=== PATIENT | female | born 1960 | race Caucasian/White ===

== ENCOUNTER 2016-10-10 22:21 | Inpatient (IN) | payer OTHER ==
[~2016-10-10] VITALS: Ht 149.9 cm; Wt 65.5 kg
[2016-10-10] MEDS ORDERED: SODIUM CHLORIDE FLUSH 10 ML SYR IV PRN (22:55)
[2016-10-10] MEDS ORDERED: ONDANSETRON 2 MG/ML (Z0FRAN) 2 ML VIAL IV ONE (22:55)
[2016-10-10] MEDS ORDERED: SODIUM CHLORIDE FLUSH 3 ML SYR IV PRN (22:55)
[2016-10-10 23:44] LABS: BASOPHILS % (AUTO) 0 % (0-2); EOSINOPHILS % (AUTO) 0 % (0-4); LYMPHOCYTES # (AUTO) 0.9 X10^3; MEAN CORPUSCULAR HEMOGLOBIN 30.2 PG (26.0-34.0); MEAN CORPUSCULAR VOLUME 85 FL (80-100); MEAN PLATELET VOLUME 10.3 FL (6.0-9.5); MONOCYTES # (AUTO) 1.1 X10^3; MONOCYTES % (AUTO) 8 % (3-11); NEUTROPHILS # (AUTO) 11.5 X10^3; NEUTROPHILS % (AUTO) 85 % (51-67); PLATELET COUNT 234 10^3uL (150-450); WHITE BLOOD COUNT 13.56 10^3uL (4.0-11.0)
[2016-10-10 23:46] LABS: MEAN CORPUSCULAR HGB CONC 35.6 g/dL (31.0-37.0)
[2016-10-10 23:48] LABS: CLARITY,URINE Clear; COLOR,URINE Yellow; GLUCOSE, URINE (UA) 2+ (Negative); LEUKOCYTE ESTERASE ,URINE Negative (Negative); UROBILINOGEN,URINE 0.2 mg/dL (0.2-1.0)
[2016-10-10 23:51] LABS: ANION GAP 21.9 MEQ/L (3-15)
[2016-10-10 23:51] LABS: BILIRUBIN,URINE 2+ (Negative)
[2016-10-10 23:52] LABS: ALBUMIN 3.6 g/dL (3.4-5.0); CALCULATED IONIZED CALCIUM 4.4 mg/dL (3.8-4.6); TOTAL PROTEIN 6.6 g/dL (6.4-8.5)
[2016-10-11] VITALS (15 sets, daily range): BP systolic 94–134; BP diastolic 30–81
[2016-10-11 00:22] LABS: URINE CENTRIFUGED VOLUME 10 mL
[2016-10-11 00:24] LABS: YEAST,URINE 1+
[2016-10-11] MEDS ORDERED: LIDOCAINE PF 1% (XYLOCAINE) 2 ML VIAL INJ ONE (00:30)
[2016-10-11 00:49] LABS: ABG PCO2 24 mmHg (35-45); ABG PH 7.46 (7.35-7.45)
[2016-10-11 00:50] LABS: ABG OXYGEN SATURATION 98 % (95-98); ABG PO2 93 mmHg (80-105)
[2016-10-11] MEDS ORDERED: D5 1/2 NS W/KCL 20 MEQ/L 1,000 ML IV SCH ×2 (01:41→11:11)
[2016-10-11] MEDS ORDERED: IBUPROFEN 600 MG (MOTRIN) TAB PO PRN (01:45)
[2016-10-11] MEDS ORDERED: GLUCAGON EMERGENCY 1 MG/KIT IM PRN ×2 (01:45→16:26)
[2016-10-11] MEDS ORDERED: ACETAMINOPHEN 325 MG TAB (TYLENOL) PO PRN (01:45)
[2016-10-11] MEDS ORDERED: DEXTROSE 50% 25 GM/50 ML SYRINGE IV PRN ×2 (01:45→16:25)
[2016-10-11] MEDS ORDERED: CALCIUM CARBONATE CHEWABLE 300 MG (TUMS) TABLET PO PRN ×2 (01:45→16:25)
[2016-10-11] MEDS ORDERED: MAG HYDROX/AL HYDROX/SIMETH 200-200-20/5 ML (MAG-AL PLUS) 30 ML UDC PO PRN ×2 (01:45→16:28)
[2016-10-11] MEDS ORDERED: ONDANSETRON 2 MG/ML (Z0FRAN) 2 ML VIAL IV PRN (01:45)
[2016-10-11] MEDS ORDERED: INSULIN REGULAR VIAL 100 UNIT in SODIUM CHLORIDE 100 ML IV SCH (01:45)
[2016-10-11] MEDS ORDERED: PROMETHAZINE HCL INJ 12.5 MG in SODIUM CHLORIDE 25 ML IV PRN ×2 (01:45→16:24)
[2016-10-11] MEDS ORDERED: INSULIN REGULAR 1 UNIT/0.01 ML DOSE SC ONE (01:45)
[2016-10-11] MEDS ORDERED: DEXTROSE ORAL GEL (GLUTOSE 40%) 15 GM TUBE PO PRN ×2 (01:45→16:15)
[2016-10-11] MEDS ORDERED: SODIUM CHLORIDE 100 ML ONE ×2 (02:28→07:32)
--- NOTE | 2016-10-11 03:30 | NUR ---
Pt admitted to room 345 from ER via cart at 0240. Pt admitted for DKA and N/V. Pt transferred self from cart to bed. Pt very weak, needed assist of one to get completely on bed. Pt reports feeling nauseous. Zofran 4 mg IV administered at 0242. 7 units Insulin administered in right upper arm for elevated BGM at 0243. Telemetry applied at 0246, NSR, rate 90's. IVF of NS initiated at 500cc/hr at 0254. Insulin gtt started at 9.5 units/hr based on weight of 68.1 kg X 0.14 units/hour for first hour. Initial BGM was 407. O2 placed @ 2L per NC at 0325 due to O2 sats dropping to 86%. Pt stated she was hot, provided fan in room for comfort. Pt reports nausea has lessened and feels tired. No other needs at this time. Call light in reach. Side rails up times two.
--- NOTE | 2016-10-11 04:00 | NUR ---
BGM 393, administered bolus of 9.5 units per protocol and continued insulin drip at same rate.
--- NOTE | 2016-10-11 04:10 | NUR ---
Attempted to contact pt's spouse per request. Spouse's phone was busy, tried 3 times. Also attempted to call 2nd contact, Rufino Ortiz, voice mail picked up, no message left. Informed pt of results of phone calls. Will attempt calling again at a later time. Pt resting well. No c/o nausea at this time.
[2016-10-11 04:56] LABS: ALBUMIN 3.1 g/dL (3.4-5.0); PHOSPHORUS 2.6 mg/dL (2.4-4.9)
--- NOTE | 2016-10-11 05:00 | NUR ---
BGM 248, insulin drip decreased by 50% to 4.7 units/hr. IVF changed to D5 1/2NS with 20KCL tra 200cc/hr.
[2016-10-11] MEDS ORDERED: D5 1/2 NS W/KCL 20 MEQ/L 1,000 ML IV ONE (05:08)
--- NOTE | 2016-10-11 05:25 | NUR ---
Potassium level 3.1. Per order, Insulin drip stopped. Administering Potassium bolus X2, then will restart insulin drip. Pt continues to rest without complaints. No other needs at this time.
[2016-10-11] MEDS: POTASSIUM CL IVPB 50 ML IV PRN ×3 (05:28→09:41)
[2016-10-11] MEDS ORDERED: POTASSIUM CHLORIDE ER 10 MEQ CAPSULE PO ONE ×2 (06:16→06:20)
--- NOTE | 2016-10-11 06:30 | NUR ---
Pt c/o IV site hurting with potassium infusing. Tried to alleviate some of the discomfort by reducing the rate of infusion, pt could not tolerate it. Stopped infusion. Notified Dr. Perry, received new order for PO KCL. Restarted IVF and insulin drip. Pt stated the IV site in left forearm hurt too bad to continue infusions. No redness or edema present, site still flushes well. Will give site a break. Restarted IV to RAC, 20G. IVF and Insulin drip now infusing in different site. Gave Potassium 10 meq and Protonix scheduled dose. Pt took without difficulty. Pt resting in bed now. Denies needs. No c/o nausea. Will continue to monitor.
[2016-10-11] MEDS ORDERED: PANTOPRAZOLE 40 MG (PROTONIX) TAB PO SCH (07:00)
--- NOTE | 2016-10-11 07:15 | NUR ---
Insulin drip rate increased by 50% to 10.7 units/hr per protocol for a blood sugar of 258, which is an increase from 234. Radiology here to take pt. to xray by WC.
--- NOTE | 2016-10-11 07:26 | NUR ---
Pt. back to room from xray. Assisted up to toilet. Gait is weak and unsteady.
--- NOTE | 2016-10-11 07:50 | NUR ---
Pt. continues to c/o nausea and some dizziness. Phenergan 12.5mg IV given at this time. UA obtained and sent to lab.
--- NOTE | 2016-10-11 08:10 | NUR ---
Sejalfran ordered 10/10 at 2255 in ED was not given per report.
[2016-10-11 08:31] LABS: ALBUMIN 3.5 g/dL (3.4-5.0); ANION GAP 16.3 MEQ/L (3-15); MAGNESIUM* 1.7 mg/dL (1.6-2.3); PHOSPHORUS 2.4 mg/dL (2.4-4.9)
[2016-10-11] MEDS ORDERED: ENOXAPARIN 40 MG/0.4 ML (LOVENOX) SYR SC SCH (09:00)
--- NOTE | 2016-10-11 09:10 | NUR ---
Insulin drip stopped for KCL infusion per protocol for K level of 3.1 with 0800 labs.
[2016-10-11] MEDS: LIDOCAINE PF 1% (XYLOCAINE) 2 ML VIAL INJ PRN ×2 (09:12→09:41)
--- NOTE | 2016-10-11 10:22 | NUR ---
KCL infusion complete. Insulin drip restarted at 2 units/hr.
--- NOTE | 2016-10-11 10:40 | NUR ---
NUTRITION ASSESSMENT Level 1 Patient: Lyn Menchaca Age/Sex: 55/F Date Screened: 10-11-16 Weight: 144.1#/65.5 kg Height: 59 inches Primary Diagnosis: DKA Diet Order: medium diabetic Relevant labs: glucose 203 (602 on admission), Hgb A1c >14.0 Food allergies: N Nutrition Assessment Criteria Age over 80: N Body Mass Index (BMI) under 19: N Admission Screening Indicates Risk? 3 points Moderate/High Risk Diagnosis: 6 points TPN or PPN: N NPO or clear liquid diet: N Serum Glucose <70 or >180: 3 points Hgb A1c >6.7: 3 points Total: 15 points Risk Screen: __ Patient at low nutritional risk based on available data; reevaluate in 5-7 days __ Patient at moderate nutritional risk based on available data; reevaluate in 3-5 days _X_ Patient at high nutritional risk; complete Nutrition Assessment within 48 hours of admission.
[2016-10-11] MEDS ORDERED: INSULIN LISPRO 1 UNIT/0.01 ML (HUMALOG) DOSE SC SCH ×2 (11:30→18:00)
[2016-10-11] MEDS: MAGNESIUM 1 GM/100 ML IVPB 100 ML IV SCH ×2 (11:34→12:40)
--- NOTE | 2016-10-11 11:45 | NUR ---
Dr. Perry notified of pts. temp of 100.7. Tylenol given for temp. Pt. has been intermittently feeling hot and cold this morning. Holding sliding scale Humalog at this time per Dr. Perry's verbal request/order, since insulin drip was just DC'd.
--- NOTE | 2016-10-11 11:50 | NUR ---
MED REC COMPLETED-current med list obtained from patient interview. Conducted by Po Ortiz, PharmD Candidate 2017.
[2016-10-11 12:24] LABS: ANION GAP 11.4 MEQ/L (3-15); PHOSPHORUS 2.6 mg/dL (2.4-4.9)
--- NOTE | 2016-10-11 13:07 | NUR ---
Pt. resting with eyes closed. SpO2 86-88% on RA. O2 placed at 1L/NC to keep SpO2 at 90% or greater as ordered. RT notified. SpO2 92-93% on 1L/NC.
--- NOTE | 2016-10-11 13:55 | NUR ---
NUTRITION ASSESSMENT Level II Patient: Lyn Menchaca Age/Sex: 55/F Date Assessed: 10-11-16 ASSESSMENT Pertinent History: Patient admitted with DKA and screened at high nutritional risk secondary to diagnosis and reports of not taking diabetes medication at home. Of note, her A1c was significantly elevated (13.5) at her last admission almost 2 years ago in November,. PMHx includes GERD, diabetes, HTN and kidney stones. She lives at home with her and 2 young grandsons. She c/o abdominal pain and n/v/d. Patient has intentionally lost >100# over the last 2 years by verbal report; according to her old chart, she weighed 188# in November,. Meds/Nutrition: Protonix, NS, KCl, Regular insulin, D5 NS w/ KCl Weight: 144.1#/65.5 kg Height: 59 inches Body Mass Index (BMI): 29.2 [place] Body Weight : 95#/43.1 kg % IBW: 151% GASTROINTESTINAL Appetite: poor Diet Order: medium diabetic Unintentional loss of >10 lbs. in 3 months: N Difficult to chew/swallow: N Diabetes: Yes Relevant Labs: glucose 203 (602 on admission), Hgb A1c >14.0 Calculations for Nutritional Assessment Estimated calorie needs: 22-25 kcals/kg = 1,430-1,625 kcals Estimated protein needs: 1.0-1.1 g/kg = 65-71 g./day DIAGNOSIS 1. Nutrition Diagnosis: Altered nutrition related lab values related to endocrine dysfunction and behavior choices as evidenced by DKA diagnosis with reports of not taking diabetes medications. NUTRITIONAL INTERVENTION Goal: Patient will receive adequate nutrition to meet her needs and support normal glycemic control. Plan: Agree with medium diabetic diet. Recommend outpatient diabetes self-management education since pt. has a prolonged history of uncontrolled diabetes. MONITORING & EVALUATION _X_ Monitor patients menu selections _X_ Monitor patients food intake per nursing notes __ Monitor NPO/clear liquid days _X_ Monitor lab values __ Monitor I&O __ Other
--- NOTE | 2016-10-11 14:41 | NUR ---
Pt. ate all of her lunch, has IVF with 5% dextrose infusing at 200ml/hr and insulin drip was DC'd at 1119. Blood sugar checked to monitor fluctuation, as next scheduled check is not until 1730. Blood sugar is 363 at this time. Result texted to Dr. Perry. Addendum: 10/11/16 at 1448 by Diana Lombardi RN Amended: Links added.
--- NOTE | 2016-10-11 15:03 | NUR ---
Phone order received from Dr. Perry to DC current IVF and start NS @ 200ml/hr x 1 liter.
[2016-10-11] MEDS ORDERED: SODIUM CHLORIDE FLUSH 10 ML SYR IV PRN ×2 (16:29→22:55)
[2016-10-11] MEDS ORDERED: SODIUM CHLORIDE FLUSH 3 ML SYR IV PRN ×2 (16:29→22:55)
[2016-10-11] MEDS ORDERED: LIDOCAINE PF 1% (XYLOCAINE) 2 ML VIAL INJ PRN (16:29)
[2016-10-11 16:59] LABS: ALBUMIN 2.9 g/dL (3.4-5.0)
--- NOTE | 2016-10-11 17:27 | NUR ---
Pt. transferred to [facility] via WC accompanied by RN. Report given to Amy Marks RN and care of pt. assumed. Belongings sent with pt.
--- NOTE | 2016-10-11 17:27 | NUR ---
Pt transferred from ICU to room 319 at this time via w/c accompanied by this nurse and rah CRESPO. Pt on RA. 1 Assist to bathroom, then bed. Missed hat- large amt urine. IVF infusing at 200ml/hr- SL x2.
[2016-10-11] MEDS: INSULIN LISPRO 1 UNIT/0.01 ML (HUMALOG) DOSE SC SCH ×4 (17:49→21:15)
--- NOTE | 2016-10-11 17:52 | NUR ---
Pt refusing supper tray at this time- Clarified with Dr. Perry regarding Humalog orders- Scheduled for Humalog 10units with meals and 3units sliding scale-Dr. Perry gave VORB to given sliding scale and hold Prandial with understanding that if patient eats to give prandial then.
[2016-10-11] MEDS: ACETAMINOPHEN 325 MG TAB (TYLENOL) PO PRN (20:08)
--- NOTE | 2016-10-11 20:08 | NUR ---
PRN Tylenol given at this time for discomfort. Pt appears diaphoretic, states she is hot. Fan turned on, heater turned off. Cool wash cloth provided. Pt denies other needs.
[2016-10-11] MEDS ORDERED: INSULIN GLARGINE 1 UNIT/0.01ML (LANTUS) DOSE SC SCH (21:00)
[2016-10-11] MEDS: INSULIN GLARGINE 1 UNIT/0.01ML (LANTUS) DOSE SC SCH (21:15)
[2016-10-12 00:35] VITALS: BP 120/74
[2016-10-12] MEDS: IBUPROFEN 600 MG (MOTRIN) TAB PO PRN (04:45)
[2016-10-12] MEDS: ONDANSETRON 2 MG/ML (Z0FRAN) 2 ML VIAL IV PRN ×2 (04:45→12:13)
--- NOTE | 2016-10-12 04:57 | NUR ---
Pt was found to be incontinent of loose stool. Cleaned pt up in shower. Pt vomited x1 upon returning to room. Endorses feeling achy and nauseated. PRN Motrin and Zofran given at this time. Pt's RAC IV just wrapped in Coban, no tegaderm d/t allergy. Will monitor closely and attempt to reinforce it better. Pt denies other needs.
[2016-10-12 05:57] VITALS: BP 134/66
[2016-10-12] MEDS: PANTOPRAZOLE 40 MG (PROTONIX) TAB PO SCH (06:27)
[2016-10-12 06:36] LABS: BASOPHILS % (AUTO) 0 % (0-2); EOSINOPHILS % (AUTO) 0 % (0-4); LYMPHOCYTES # (AUTO) 1.4 X10^3; MEAN CORPUSCULAR HEMOGLOBIN 29.8 PG (26.0-34.0); MEAN CORPUSCULAR HGB CONC 34.3 g/dL (31.0-37.0); MEAN CORPUSCULAR VOLUME 87 FL (80-100); MEAN PLATELET VOLUME 10.3 FL (6.0-9.5); MONOCYTES # (AUTO) 0.9 X10^3; MONOCYTES % (AUTO) 11 % (3-11); NEUTROPHILS # (AUTO) 5.5 X10^3; NEUTROPHILS % (AUTO) 70 % (51-67); PLATELET COUNT 171 10^3uL (150-450); WHITE BLOOD COUNT 7.78 10^3uL (4.0-11.0)
--- NOTE | 2016-10-12 06:45 | NUR ---
Pt endorses feeling better. States she is comfortable. SL intact. Denies needs.
[2016-10-12 07:05] LABS: ALBUMIN 2.5 g/dL (3.4-5.0); ANION GAP 11.3 MEQ/L (3-15); PHOSPHORUS 2.3 mg/dL (2.4-4.9)
[2016-10-12 08:00] VITALS: BP 133/73
[2016-10-12] MEDS: INSULIN LISPRO 1 UNIT/0.01 ML (HUMALOG) DOSE SC SCH ×7 (08:17→20:39)
[2016-10-12] MEDS: ENOXAPARIN 40 MG/0.4 ML (LOVENOX) SYR SC SCH (08:18)
--- NOTE | 2016-10-12 08:20 | NUR ---
PT FINISHED BREAKFAST TRAY, ATE 100%, C/O NAUSEA BUT DECLINES IV PHENERGAN, STS SHE WANTS TO WAIT FOR IT TO PASS.
--- NOTE | 2016-10-12 09:20 | NUR ---
PT C/O CONT/WORSENING NAUSEA, HAS EMESIS BAG CLOSE, IV PHENERGAN INFUSION INIT AT 75CC/HR PER PATENT IVL IN RAC, WILL MONITOR.
[2016-10-12 12:00] VITALS: BP 113/63
[2016-10-12] MEDS ORDERED: INSULIN LISPRO 1 UNIT/0.01 ML (HUMALOG) DOSE SC ONE (13:00)
[2016-10-12 15:57] VITALS: BP 123/64
[2016-10-12] MEDS: ACETAMINOPHEN 325 MG TAB (TYLENOL) PO PRN (16:39)
[2016-10-12 20:11] VITALS: BP 118/67
[2016-10-12] MEDS: INSULIN GLARGINE 1 UNIT/0.01ML (LANTUS) DOSE SC SCH (21:06)
[2016-10-13 00:04] VITALS: BP 125/65
[2016-10-13 04:21] VITALS: BP 138/70
[2016-10-13 06:08] LABS: MEAN CORPUSCULAR HEMOGLOBIN 29.8 PG (26.0-34.0); MEAN CORPUSCULAR HGB CONC 34.7 g/dL (31.0-37.0); MEAN CORPUSCULAR VOLUME 86 FL (80-100); MEAN PLATELET VOLUME 10.2 FL (6.0-9.5); PLATELET COUNT 162 10^3uL (150-450)
[2016-10-13 06:27] LABS: ALBUMIN 2.5 g/dL (3.4-5.0); ANION GAP 9.7 MEQ/L (3-15); MAGNESIUM* 1.6 mg/dL (1.6-2.3); PHOSPHORUS 2.7 mg/dL (2.4-4.9)
[2016-10-13 06:40] LABS: BAND NEUTROPHILS % 0 % (0-6); EOSINOPHILS % 1 % (0-4); LYMPHOCYTES # 1.8 #; MONOCYTES # 0.7 #; MONOCYTES % 13 % (3-11); RBC MORPH NORMAL (NORMAL); SEGMENTED NEUTROPHILS % 49 % (51-67); TOTAL CELLS COUNTED 100
[2016-10-13] MEDS: INSULIN LISPRO 1 UNIT/0.01 ML (HUMALOG) DOSE SC SCH ×7 (06:51→21:00)
[2016-10-13] MEDS: PANTOPRAZOLE 40 MG (PROTONIX) TAB PO SCH (06:54)
[2016-10-13] MEDS: ENOXAPARIN 40 MG/0.4 ML (LOVENOX) SYR SC SCH (08:21)
[2016-10-13 08:29] VITALS: BP 170/90
--- NOTE | 2016-10-13 08:30 | NUR ---
Pt sitting in chair eating breakfast. Breathing equal and unlabored on room air. Pt alert, oriented, and cooperative. SL without redness or edema. Pt c/o diarrhea thru the night.
[2016-10-13 12:50] VITALS: BP 146/93
[2016-10-13] MEDS: ACETAMINOPHEN 325 MG TAB (TYLENOL) PO PRN (16:21)
[2016-10-13 17:11] VITALS: BP 153/71
[2016-10-13] MEDS ORDERED: lisINopril 10 MG (PRINIVIL) TABLET PO ONE (17:15)
[2016-10-13] MEDS ORDERED: lisINopril 10 MG (PRINIVIL) TABLET ONE (18:43)
--- NOTE | 2016-10-13 19:30 | NUR ---
Pt is sitting up in recliner, alert and oriented x 4, resp are even and nonlabored, LCTAB, BS are active x 4 quadrants, SL is patent, no redness, swelling, or s/s of infection noted at this time. Denies pain at this time. Call light in reach, will continue to monitor.
[2016-10-13 19:43] VITALS: BP 155/82
[2016-10-13] MEDS: INSULIN GLARGINE 1 UNIT/0.01ML (LANTUS) DOSE SC SCH (21:00)
[2016-10-14 00:07] VITALS: BP 154/79
[2016-10-14 04:41] VITALS: BP 154/61
[2016-10-14] MEDS: PANTOPRAZOLE 40 MG (PROTONIX) TAB PO SCH (06:12)
[2016-10-14] MEDS: INSULIN LISPRO 1 UNIT/0.01 ML (HUMALOG) DOSE SC SCH ×7 (07:30→21:00)
[2016-10-14 07:52] VITALS: BP 170/85
[2016-10-14] MEDS ORDERED: lisINopril 10 MG (PRINIVIL) TABLET PO SCH (09:00)
[2016-10-14] MEDS: ENOXAPARIN 40 MG/0.4 ML (LOVENOX) SYR SC SCH (09:22)
[2016-10-14] MEDS: IBUPROFEN 600 MG (MOTRIN) TAB PO PRN ×2 (09:26→21:33)
[2016-10-14 11:25] VITALS: BP 137/72
[2016-10-14 15:26] VITALS: BP 144/69
[2016-10-14] MEDS: ACETAMINOPHEN 325 MG TAB (TYLENOL) PO PRN (15:29)
--- NOTE | 2016-10-14 18:35 | NUR ---
Pt has felt well this shift. Only complaint is of pain in the mass on her sternum. PRN medication given when requested for this. SL intact. Pt is independent in her room. Denies needs.
[2016-10-14 19:56] VITALS: BP 152/71
[2016-10-14] MEDS: INSULIN GLARGINE 1 UNIT/0.01ML (LANTUS) DOSE SC SCH (21:43)
[2016-10-15] VITALS (7 sets, daily range): BP systolic 145–181; BP diastolic 75–93
--- NOTE | 2016-10-15 04:42 | NUR ---
2114-Pt is sitting up in recliner, alert and oriented x 4, Resp are even and nonlabored, LCTAB, BS are active x 4 quadrants, SL is patent, no redness, swelling, or s/s of infection noted at this time. Rates pain 6/10 at this time, gave 1 tab PO of Motrin 600mg for discomfort. Call light in reach, will continue to monitor.
[2016-10-15] MEDS: PANTOPRAZOLE 40 MG (PROTONIX) TAB PO SCH (06:25)
[2016-10-15] MEDS: INSULIN LISPRO 1 UNIT/0.01 ML (HUMALOG) DOSE SC SCH ×7 (07:15→20:56)
[2016-10-15] MEDS: IBUPROFEN 600 MG (MOTRIN) TAB PO PRN (08:43)
[2016-10-15] MEDS: lisINopril 20 MG (PRINIVIL) TABLET PO SCH (08:43)
--- NOTE | 2016-10-15 08:43 | NUR ---
PRN Motrin given at this time for c/o upper abd/sternal pain from mass rated 7/10. Denies other needs.
[2016-10-15] MEDS: ENOXAPARIN 40 MG/0.4 ML (LOVENOX) SYR SC SCH (08:45)
--- NOTE | 2016-10-15 18:41 | NUR ---
Pt has denied needs this shift. Surgical consent signed. Pt states pain "isn't bad" at this time. Pt asks that Dr Velazquez calls her aunt in [place] after her surgery tomorrow to update her as her aunt is a retired doctor. SL intact. Skin WDI, resprs nonlabored, even on RA. Denies needs.
[2016-10-15] MEDS: INSULIN GLARGINE 1 UNIT/0.01ML (LANTUS) DOSE SC SCH (20:57)
[2016-10-16] VITALS (15 sets, daily range): BP systolic 144–182; BP diastolic 70–91
[2016-10-16] MEDS: PANTOPRAZOLE 40 MG (PROTONIX) TAB PO SCH (06:28)
[2016-10-16] MEDS: INSULIN LISPRO 1 UNIT/0.01 ML (HUMALOG) DOSE SC SCH ×7 (07:11→20:55)
--- NOTE | 2016-10-16 07:45 | NUR ---
Patient sitting up in bed upon shift assessment. Alert and oriented X3. Reports medial sternal pain rated 3/10 on pain scale. Denies SOA or nausea. Reports pain is aggravated by activity. Denies need for pain medication. HR RRR. Lung sounds CTAB. Updated on plan of care for shift including tentative procedure time. Call light in reach.
[2016-10-16] MEDS: ENOXAPARIN 40 MG/0.4 ML (LOVENOX) SYR SC SCH (09:57)
[2016-10-16] MEDS ORDERED: LACTATED RINGERS 1,000 ML IV SCH (12:00)
--- NOTE | 2016-10-16 12:25 | NUR ---
MULTIDISCIPLINARY MTG/DR. FUENTES: Pt. scheduled for surgery today to remove a mass. Pt. sugars have been better throughout the weekend and Pt. is feeling better. Pt. hasn't received any pain medications this morning. No discharge needs identified at this time.
[2016-10-16] MEDS ORDERED: LIDOCAINE/EPINEPHRINE 1% 1:100,000 (XYLOCAINE) 30 ML VIAL INJ ONE (13:05)
--- NOTE | 2016-10-16 14:00 | NUR ---
Patient to OR via cart.
[2016-10-16] MEDS ORDERED: PROPOFOL 20 ML IV ONE (14:06)
[2016-10-16] MEDS ORDERED: MIDAZOLAM 2 MG/2 ML (VERSED) VIAL ONE (14:19)
[2016-10-16] MEDS ORDERED: DEXTROSE ORAL GEL (GLUTOSE 40%) 15 GM TUBE PO PRN (15:45)
[2016-10-16] MEDS ORDERED: HYDROmorphone 1 MG/ML (DILAUDID) SYRINGE ONE (15:46)
[2016-10-16] MEDS ORDERED: CALCIUM CARBONATE CHEWABLE 300 MG (TUMS) TABLET PO PRN (15:52)
[2016-10-16] MEDS ORDERED: ACETAMINOPHEN 325 MG TAB (TYLENOL) PO PRN (15:52)
[2016-10-16] MEDS ORDERED: PROMETHAZINE HCL INJ 12.5 MG in SODIUM CHLORIDE 25 ML IV PRN (15:52)
[2016-10-16] MEDS ORDERED: KETOROLAC 30 MG/ML (TORADOL) 1 ML VIAL ONE (16:01)
--- NOTE | 2016-10-16 16:22 | NUR ---
Patient returns to room 319 via OR cart. Ambulates to bed and reports severe pain with this in medial chest. PRN Dilaudid provided. Dressing clean, dry, and intact. at bedside. Call light in reach.
[2016-10-16] MEDS ORDERED: DEXTROSE 50% 25 GM/50 ML SYRINGE IV PRN (16:25)
[2016-10-16] MEDS: HYDROmorphone 2 MG/ML (DILAUDID) 1 ML SYRINGE IV PRN ×3 (16:28→23:05)
[2016-10-16] MEDS: SODIUM CHLORIDE FLUSH 10 ML SYR IV PRN ×2 (16:28→19:39)
[2016-10-16] MEDS ORDERED: MAG HYDROX/AL HYDROX/SIMETH 200-200-20/5 ML (MAG-AL PLUS) 30 ML UDC PO PRN (16:30)
[2016-10-16] MEDS ORDERED: GLUCAGON EMERGENCY 1 MG/KIT IM PRN (16:30)
[2016-10-16] MEDS ORDERED: SODIUM CHLORIDE FLUSH 3 ML SYR IV PRN (16:30)
[2016-10-16] MEDS ORDERED: LIDOCAINE PF 1% (XYLOCAINE) 2 ML VIAL INJ PRN (16:30)
[2016-10-16] MEDS ORDERED: ONDANSETRON 2 MG/ML (Z0FRAN) 2 ML VIAL IV PRN (16:30)
--- NOTE | 2016-10-16 18:10 | NUR ---
Dr. Duvall in room to see patient. Patient continues to report medial chest pain. New order received for EKG, troponin, and telemetry.
--- NOTE | 2016-10-16 18:11 | NUR ---
RT here for EKG. Patient reports medial chest pain rated 5/10 on pain scale. Describes pain as "sharp like a knife is in the incision". Will continue to monitor.
[2016-10-16] MEDS ORDERED: INSULIN GLARGINE 1 UNIT/0.01ML (LANTUS) DOSE SC SCH (21:00)
[2016-10-17] MEDS: HYDROmorphone 2 MG/ML (DILAUDID) 1 ML SYRINGE IV PRN ×2 (04:00→09:22)
[2016-10-17] MEDS: SODIUM CHLORIDE FLUSH 10 ML SYR IV PRN (04:01)
[2016-10-17 04:10] VITALS: BP 126/52
[2016-10-17] MEDS: INSULIN LISPRO 1 UNIT/0.01 ML (HUMALOG) DOSE SC SCH ×6 (05:53→21:05)
[2016-10-17] MEDS: PANTOPRAZOLE 40 MG (PROTONIX) TAB PO SCH (06:29)
[2016-10-17] MEDS: IBUPROFEN 600 MG (MOTRIN) TAB PO PRN ×2 (06:32→15:54)
[2016-10-17 07:22] VITALS: BP 152/70
[2016-10-17] MEDS: ENOXAPARIN 40 MG/0.4 ML (LOVENOX) SYR SC SCH (09:26)
--- NOTE | 2016-10-17 09:30 | NUR ---
PRN Dilaudid given at this time for c/o incisional pain rated 9/10. Pt wincing and moaning in pain. Pt states it helped the pain almost immediately. Incisional drsg intact. SL intact. Skin warm, dry, intact. Resprs nonlabored, even on RA. Denies other needs.
[2016-10-17 11:19] VITALS: BP 143/72
--- NOTE | 2016-10-17 13:50 | NUR ---
PRN Ultram given at this time for c/o incisional pain rated 6/10. Pt sitting in chair. States she is as comfortable as she can get. Denies other needs.
--- NOTE | 2016-10-17 15:55 | NUR ---
pt requests motrin for pain at surgical site. 04/02. no other needs or c/o at this time.
[2016-10-17 16:03] VITALS: BP 160/67
--- NOTE | 2016-10-17 17:15 | NUR ---
Blood sugar 69, patient feels dizzy and weak. Juice provided. Will recheck in one hour.
[2016-10-17] MEDS: HYDROcodone/APAP 5 MG/325 MG (NORCO) TAB PO PRN ×2 (18:38→22:25)
--- NOTE | 2016-10-17 18:39 | NUR ---
PRN Lutz given at this time for c/o incisional pain rated 5/10. Pt sitting up in bed eating dinner. SL intact. Denies other needs.
--- NOTE | 2016-10-17 19:45 | NUR ---
Pt is resting in bed watching tv, alert and oriented x 4, Resp are even and nonlabored, LCTAB, HRRR, BS are active x 4 quadrants. Pt has folded 4x4 and tape to sternum, dressing is dry and intact, does have small amount of dried blood on dressing at this time. Pt reports pain is 4/10 at this time. Request to have tape to IV changed, this RN changed tape at this time. Pt is wondering when she will get her next dose of Insulin, and this RN informs pt that she will have her blood sugar checked and receive insulin at 2100. SL is patent, no redness, swelling, or s/s of infection noted at this time. Denies further needs at this time. Call light is in reach, will continue to monitor.
[2016-10-17 20:09] VITALS: BP 162/73
[2016-10-17] MEDS ORDERED: [UNRECOGNIZED DRUG - OTHER] SC ONE (21:00)
[2016-10-17] MEDS ORDERED: INSULIN NPL SC ONE (21:00)
[2016-10-17] MEDS ORDERED: LISPRO SC ONE (21:00)
[2016-10-18 00:20] VITALS: BP 152/80
[2016-10-18] MEDS: HYDROcodone/APAP 5 MG/325 MG (NORCO) TAB PO PRN ×2 (02:55→08:23)
[2016-10-18 04:42] VITALS: BP 167/78
--- NOTE | 2016-10-18 05:00 | NUR ---
0030- Received PRN Clinton 5/325mg 1 tab PO for discomfort, rates 04/02. 0410-Received PRN Clinton 5/325mg 1 tab PO for discomfort, rates 04/02. 0500-Pt is currently resting in bed asleep, call light in reach.
[2016-10-18 06:05] LABS: BASOPHILS % (AUTO) 0 % (0-2); EOSINOPHILS # (AUTO) 0.3 10^3uL; EOSINOPHILS % (AUTO) 3 % (0-4); LYMPHOCYTES # (AUTO) 3.5 X10^3; MEAN CORPUSCULAR HEMOGLOBIN 30.1 PG (26.0-34.0); MEAN CORPUSCULAR HGB CONC 34.2 g/dL (31.0-37.0); MEAN CORPUSCULAR VOLUME 88 FL (80-100); MEAN PLATELET VOLUME 9.5 FL (6.0-9.5); MONOCYTES # (AUTO) 1.1 X10^3; MONOCYTES % (AUTO) 10 % (3-11); NEUTROPHILS # (AUTO) 5.5 X10^3; NEUTROPHILS % (AUTO) 52 % (51-67); PLATELET COUNT 290 10^3uL (150-450); WHITE BLOOD COUNT 10.43 10^3uL (4.0-11.0)
[2016-10-18 06:26] LABS: ALBUMIN 2.8 g/dL (3.4-5.0); ANION GAP 10.3 MEQ/L (3-15); MAGNESIUM* 1.8 mg/dL (1.6-2.3); PHOSPHORUS 4.3 mg/dL (2.4-4.9)
[2016-10-18] MEDS: PANTOPRAZOLE 40 MG (PROTONIX) TAB PO SCH (06:41)
[2016-10-18] MEDS: INSULIN LISPRO 1 UNIT/0.01 ML (HUMALOG) DOSE SC SCH ×2 (06:57→12:24)
--- NOTE | 2016-10-18 07:52 | NUR ---
Patient sitting up in recliner upon shift assessment. Alert and oriented X3. Reports medial lower chest pain contributed to surgical incision. Dressing clean, dry, and intact. Denies SOA or nausea. HR RRR. Telemetry reflecting NSR. Lung sounds CTAB. Bowel sounds audible in all quadrants. Updated on plan of care for shift. Call light in reach.
[2016-10-18 08:05] VITALS: BP 162/89
[2016-10-18] MEDS: ENOXAPARIN 40 MG/0.4 ML (LOVENOX) SYR SC SCH (08:23)
[2016-10-18] MEDS: lisINopril 20 MG (PRINIVIL) TABLET PO SCH (08:23)
[2016-10-18] MEDS ORDERED: NS FLUSH 3 ML DAILY IV SCH (09:00)
[2016-10-18] MEDS: IBUPROFEN 600 MG (MOTRIN) TAB PO PRN (12:04)
--- NOTE | 2016-10-18 12:31 | NUR ---
Reviewed discharge medications with patient. Provided patient handout information for new medications. No additional questions or concerns. Patient verbalized understanding of medications.
--- NOTE | 2016-10-18 12:49 | NUR ---
Discharge order received. IV discontinued with catheter intact. No redness or swelling noted at insertion site. Instructions provided with verbal and written understanding expressed. Prescriptions provided. Dismissed via wheelchair to private car accompanied by and ward service supervisor. No further needs.
[2016-10-18] MEDS ORDERED: INSULIN NPH/REG 70/30 1 UNIT/0.01 ML (HUMULIN 70/30) DOSE SC SCH (17:50)
== END 2016-10-18 12:49 | disposition home or self-care (01) | DRG 982 ==
LOC: ED 22:22 → ICU 10-11 01:23 → MED/SURG 10-11 17:27
PROVIDERS: ADMIT Internal Medicine; ATTEND Internal Medicine
PROC: 0PB00ZZ Excision of Sternum, Open Approach (ICD-10-PCS; principal; 2016-10-16)
DX: E13.10 Other specified diabetes mellitus with ketoacidosis without coma (principal); E87.1 Hypo-osmolality and hyponatremia; R65.10 Systemic inflammatory response syndrome (SIRS) of non-infectious origin without acute organ dysfunction; K52.9 Noninfective gastroenteritis and colitis, unspecified; D16.7 Benign neoplasm of ribs, sternum and clavicle; K21.9 Gastro-esophageal reflux disease without esophagitis; I10 Essential (primary) hypertension; J42 Unspecified chronic bronchitis; E04.1 Nontoxic single thyroid nodule; R59.0 Localized enlarged lymph nodes; Z87.442 Personal history of urinary calculi; Z86.010 Personal history of colon polyps
CPT/HCPCS: 36415; 36600; 71020; 71260; 76700; 80053; 80061; 80069; 81003; 81015; 82150; 82803; 83036; 83690; 83735; 84443; 84484; 85025; 87088; 87147; 99283; 99285

== ENCOUNTER → 2016-11-14 | Outpatient (CLI) | payer OTHER | LOC: RAD 07:01 | DX: Z12.31 Encounter for screening mammogram for malignant neoplasm of breast (principal) ==

== ENCOUNTER 2016-11-27 14:54 | Observation (INO) | payer OTHER ==
[~2016-11-27] VITALS: Ht 149.9 cm; Wt 68.2 kg
[2016-11-27] MEDS ORDERED: NITROGLYCERIN SUBLINGUAL 0.4 MG (NITROQUICK) TABLET SL PRN ×2 (15:05→18:15)
[2016-11-27] MEDS ORDERED: ASPIRIN 81 MG CHEW (CHILDREN'S ASA) PO ONE (15:05)
[2016-11-27] MEDS ORDERED: SODIUM CHLORIDE 250 ML IV PRN (15:05)
[2016-11-27] MEDS ORDERED: SODIUM CHLORIDE FLUSH 10 ML SYR IV PRN (15:05)
[2016-11-27] MEDS ORDERED: ONDANSETRON 2 MG/ML (Z0FRAN) 2 ML VIAL IV ONE (15:05)
[2016-11-27] MEDS ORDERED: SODIUM CHLORIDE FLUSH 3 ML SYR IV PRN (15:05)
--- NOTE | 2016-11-27 15:15 | NUR ---
PT PLACED ON BEDPAN & ABLE TO URINATE BUT WHEN THIS RN WIPES PT TO CLEAN HER UP, STOOL FOUND IN RECTUM HANGING IN URINE/BEDPAN. CL
[2016-11-27 15:17] LABS: BASOPHILS % (AUTO) 0 % (0-2); EOSINOPHILS # (AUTO) 0.6 10^3uL; EOSINOPHILS % (AUTO) 5 % (0-4); LYMPHOCYTES # (AUTO) 4.6 X10^3; MEAN CORPUSCULAR HEMOGLOBIN 30.7 PG (26.0-34.0); MEAN CORPUSCULAR HGB CONC 34.8 g/dL (31.0-37.0); MEAN CORPUSCULAR VOLUME 88 FL (80-100); MEAN PLATELET VOLUME 9.3 FL (6.0-9.5); MONOCYTES % (AUTO) 8 % (3-11); NEUTROPHILS # (AUTO) 6.8 X10^3; NEUTROPHILS % (AUTO) 52 % (51-67); PLATELET COUNT 312 10^3uL (150-450); WHITE BLOOD COUNT 13.07 10^3uL (4.0-11.0)
[2016-11-27 15:29] LABS: ALBUMIN 3.9 g/dL (3.4-5.0); ALKALINE PHOSPHATASE 125 U/L (38-126); ANION GAP 14.7 MEQ/L (3-15); BUN/CREATININE RATIO 42 (10-20); CALCULATED IONIZED CALCIUM 4.4 mg/dL (3.8-4.6); CREATINE KINASE 32 U/L (30-135); TOTAL PROTEIN 7.2 g/dL (6.4-8.5)
[2016-11-27 15:35] LABS: D-DIMER* < 215 ng/mL (0-500)
--- NOTE | 2016-11-27 16:12 | NUR ---
dr spicer called for dr. rojas
--- NOTE | 2016-11-27 16:32 | NUR ---
dr jerome called for admit
--- NOTE | 2016-11-27 17:00 | NUR ---
Patient arrives to floor via ED cart to room 309. Alert and oriented X3. Denies chest pain but reports mild nausea and dizziness. Assisted to weight chair and then bed with SBA. Accucheck upon arrival = 93. See admission for full assessment.
[2016-11-27 17:24] VITALS: BP 126/67
[2016-11-27 17:48] LABS: AMPHETAMINE SCREEN, URINE Negative (Negative); CANNABINOID SCREEN, URINE Negative (Negative); METHAMPHETAMINE SCREEN URINE S NEGATIVE (NEGATIVE); OPIATE SCREEN URINE Negative (Negative); PROPOXYPHENE STAT NEGATIVE (NEGATIVE)
[2016-11-27] MEDS ORDERED: GLUCAGON EMERGENCY 1 MG/KIT IM PRN (18:10)
[2016-11-27] MEDS ORDERED: ACETAMINOPHEN 325 MG TAB (TYLENOL) PO PRN (18:10)
[2016-11-27] MEDS ORDERED: ONDANSETRON 2 MG/ML (Z0FRAN) 2 ML VIAL IV PRN (18:10)
[2016-11-27] MEDS ORDERED: DEXTROSE ORAL GEL (GLUTOSE 40%) 15 GM TUBE PO PRN (18:10)
[2016-11-27] MEDS ORDERED: DEXTROSE 50% 25 GM/50 ML SYRINGE IV PRN (18:10)
--- NOTE | 2016-11-27 19:09 | NUR ---
Pt on RA, no dyspnea at this time.
[2016-11-27 19:35] VITALS: BP 133/57
[2016-11-27] MEDS: INSULIN LISPRO 1 UNIT/0.01 ML (HUMALOG) DOSE SC SCH (20:57)
[2016-11-27] MEDS ORDERED: traZODone 100 MG (DESYREL) TABLET PO SCH (21:00)
[2016-11-27] MEDS ORDERED: meTOprolol TARTRATE 50 MG (LOPRESSOR) TABLET PO SCH (21:00)
[2016-11-27] MEDS ORDERED: AMITRIPTYLINE 10 MG (ELAVIL) TAB PO SCH (21:00)
[2016-11-27 23:57] VITALS: BP 118/38
--- NOTE | 2016-11-28 03:00 | NUR ---
Pt reports headache, rated 6/10. Gave Tylenol 650 mg PO. Pt denies other needs.
[2016-11-28 04:16] VITALS: BP 131/49
[2016-11-28] MEDS: INSULIN LISPRO 1 UNIT/0.01 ML (HUMALOG) DOSE SC SCH (05:46)
[2016-11-28 06:05] LABS: BASOPHILS % (AUTO) 1 % (0-2); EOSINOPHILS # (AUTO) 0.7 10^3uL; EOSINOPHILS % (AUTO) 7 % (0-4); LYMPHOCYTES # (AUTO) 3.3 X10^3; MEAN CORPUSCULAR HEMOGLOBIN 30.7 PG (26.0-34.0); MEAN CORPUSCULAR HGB CONC 34.6 g/dL (31.0-37.0); MEAN CORPUSCULAR VOLUME 89 FL (80-100); MEAN PLATELET VOLUME 9.4 FL (6.0-9.5); MONOCYTES # (AUTO) 0.9 X10^3; MONOCYTES % (AUTO) 9 % (3-11); NEUTROPHILS # (AUTO) 5.3 X10^3; NEUTROPHILS % (AUTO) 52 % (51-67); PLATELET COUNT 285 10^3uL (150-450); WHITE BLOOD COUNT 10.22 10^3uL (4.0-11.0)
[2016-11-28 06:28] LABS: ALBUMIN 3.6 g/dL (3.4-5.0); ANION GAP 9.5 MEQ/L (3-15); CALCULATED IONIZED CALCIUM 4.5 mg/dL (3.8-4.6); TOTAL PROTEIN 6.9 g/dL (6.4-8.5)
[2016-11-28] MEDS ORDERED: INSULIN NPH/REG 70/30 1 UNIT/0.01 ML (HUMULIN 70/30) DOSE SC SCH (07:30)
[2016-11-28 07:42] VITALS: BP 148/69
[2016-11-28] MEDS ORDERED: MULTIVITAMIN W/MINERALS (THERAGRAN M) TABLET PO SCH (08:00)
[2016-11-28] MEDS ORDERED: meTOprolol TARTRATE 50 MG (LOPRESSOR) TABLET PO SCH (08:18)
[2016-11-28] MEDS ORDERED: GABAPENTIN 300 MG (NEURONTIN) CAP PO SCH (09:00)
[2016-11-28] MEDS ORDERED: metFORMIN 500 MG (GLUCOPHAGE) TABLET PO SCH (09:00)
[2016-11-28] MEDS ORDERED: TRIAMTERENE/HCTZ 37.5MG-25MG (MAXZIDE, DYAZIDE) CAPSULE PO SCH (09:00)
[2016-11-28] MEDS ORDERED: NON-FORMULARY MEDICATION 1 EA EA (Canagliflozin (Invokana) 100 MG) PO SCH (09:00)
[2016-11-28] MEDS ORDERED: ASPIRIN 81 MG CHEW (CHILDREN'S ASA) PO SCH (09:00)
[2016-11-28] MEDS ORDERED: CITALOPRAM 40 MG (CELEXA) TABLET PO SCH (09:00)
[2016-11-28] MEDS ORDERED: lisINopril 20 MG (PRINIVIL) TABLET PO SCH (09:00)
--- NOTE | 2016-11-28 09:05 | NUR ---
NUTRITION ASSESSMENT Level 1 Patient: Lyn Menchaca Age/Sex: 56/F Date Screened: 11-28-16 Weight: 150#/68.2 kg Height: 59 inches Primary Diagnosis: chest pain Diet Order: medium diabetic Relevant labs: glucose 148 Food allergies: N Nutrition Assessment Criteria Age over 80: N Body Mass Index (BMI) under 19: N Admission Screening Indicates Risk? 3 points Moderate/High Risk Diagnosis: N TPN or PPN: N NPO or clear liquid diet: N Serum Glucose <70 or >180: N Hgb A1c >6.7: N/A Total: 3 points Risk Screen: __ Patient at low nutritional risk based on available data; reevaluate in 5-7 days _X_ Patient at moderate nutritional risk based on available data; reevaluate in 3-5 days __ Patient at high nutritional risk; complete Nutrition Assessment within 48 hours of admission. Comments: Pt. was hospitalized with DKA this past September, after not taking meds; she has a history of significantly elevated blood sugars going back several years. However, they appear to be more stable since DC from the hospital. Pt. has intentionally lost >100 lbs. over the last 2 years. Will reassess as documented above.
--- NOTE | 2016-11-28 09:25 | NUR ---
Pt rests in chair at this time. Denies chest pain, N/V. Skin warm, dry, intact. Resprs nonlabored, even on RA. Pt denies needs.
--- NOTE | 2016-11-28 10:06 | NUR ---
Discharge instructions reviewed with patient, demonstrates understanding. SL removed with catheter tip intact. No redness or edema noted. Telemetry DC'd. Pt's to arrive at 1030 to transport her home. Belongings gathered.
--- NOTE | 2016-11-28 10:28 | NUR ---
Pt dismissed at this time via w/c accompanied by Lorri Gomez CNA. Belongings and DC packet sent with patient. Skin warm, dry, intact. Resprs nonlabored, even on RA. Appreciative of cares.
[2016-11-28] MEDS ORDERED: traZODone 150 MG (DESYREL) TABLET PO SCH (21:00)
== END 2016-11-28 10:28 | disposition home or self-care (01) ==
LOC: ED 14:59 → MED/SURG 16:45
PROVIDERS: ADMIT Family Medicine; ATTEND Family Medicine
DX: R07.9 Chest pain, unspecified (principal); R01.1 Cardiac murmur, unspecified; E11.9 Type 2 diabetes mellitus without complications; I10 Essential (primary) hypertension; K21.9 Gastro-esophageal reflux disease without esophagitis; J42 Unspecified chronic bronchitis; Z79.82 Long term (current) use of aspirin; Z79.84 Long term (current) use of oral hypoglycemic drugs; Z79.4 Long term (current) use of insulin
CPT/HCPCS: 36415; 71010; 80053; 80307; 82550; 82553; 83880; 84484; 85025; 85379; 85610; 85730; 93005; 96374; 99285; J1815; J2405; J7050; 93010

== ENCOUNTER 2016-12-08 08:19 | Emergency (ER) | payer OTHER ==
[~2016-12-08] VITALS: Ht 149.9 cm; Wt 63.0 kg
[~2016-12-08 08:19] MED LIST: AC325T PO; AMIT100T2 PO; AMIT10TA6 PO; ASPI-586 PO; CANA100T PO; CEPH-507 PO; CITA40TA19 PO; CITA40TA5 PO; GBPN300C PO; HUM100VI SC; HUM100VI12 SC; HYDR-3702 PO; HYDR50TA3 PO; IBP200T PO; Insulin; LANC-956 MC; LSNP20T PO; METF1000 PO; METF500T4 PO; METO100T2 PO; MTP50T PO; MULT-954 PO; MULT1TAB69 PO; Multivitamin; OSLT75C PO; RANI300T4 PO; SYRI-259 MC; TESTSTRIPS MC; TRAZ100T92 PO; TRIA1TAB18 PO
[2016-12-08] MEDS ORDERED: ATROPINE SULFATE IV ONE (08:40)
[2016-12-08] MEDS ORDERED: LIDOCAINE 1% (XYLOCAINE) 20 ML VIAL ONE ×2 (08:45→09:06)
[2016-12-08] MEDS ORDERED: HEPARIN 1000 UNIT/500 ML IV ONE (08:45)
[2016-12-08] MEDS ORDERED: fentaNYL 100 MCG/2 ML VIAL ONE ×2 (08:45→09:13)
[2016-12-08] MEDS ORDERED: ATROPINE SULFATE ONE (08:45)
[2016-12-08] MEDS ORDERED: SODIUM CHLORIDE FLUSH 10 ML SYR ONE (08:45)
[2016-12-08] MEDS ORDERED: MIDAZOLAM 2 MG/2 ML (VERSED) VIAL ONE ×2 (08:45→08:58)
[2016-12-08] MEDS ORDERED: DOPamine DRIP 400,000 MCG/250 ML BAG IV ONE (08:45)
--- NOTE | 2016-12-08 08:52 | NUR ---
Blood pressures running 50's systolic over 30's, diastolic. Atropine 1 mg given IV left AC.
[2016-12-08 08:55] LABS: BASOPHILS % (AUTO) 1 % (0-2); EOSINOPHILS # (AUTO) 0.5 10^3uL; EOSINOPHILS % (AUTO) 4 % (0-4); LYMPHOCYTES # (AUTO) 3.7 X10^3; MEAN CORPUSCULAR HEMOGLOBIN 29.8 PG (26.0-34.0); MEAN CORPUSCULAR HGB CONC 33.5 g/dL (31.0-37.0); MEAN CORPUSCULAR VOLUME 89 FL (80-100); MEAN PLATELET VOLUME 9.5 FL (6.0-9.5); MONOCYTES # (AUTO) 0.8 X10^3; MONOCYTES % (AUTO) 6 % (3-11); NEUTROPHILS # (AUTO) 7.3 X10^3; NEUTROPHILS % (AUTO) 59 % (51-67); PLATELET COUNT 302 10^3uL (150-450); WHITE BLOOD COUNT 12.47 10^3uL (4.0-11.0)
--- NOTE | 2016-12-08 08:55 | NUR ---
Patient's heartrate is still in 40's following administration of Atropine. Fast-Patch pads applied.
--- NOTE | 2016-12-08 08:55 | NUR ---
Dopamine drip started at 2mg/minute right AC by Francis Marrufo. Blood pressure 70/41. Anesthesia requested for Arterial line insertion.
--- NOTE | 2016-12-08 08:58 | NUR ---
Oxygen applied per nasal cannula for O2 sats dropping into low 90's.
--- NOTE | 2016-12-08 09:01 | NUR ---
MASTER Flores here to insert Arterial line. Versed I mg. IV LAC. BP 68/40. External pacing begun with rate set at 70 beats per minute. Dopamine increased to 8 mg/minute.
--- NOTE | 2016-12-08 09:01 | NUR ---
Mark THAO places Arterial line in left forearm. Arterial pressure is 68/40. Heparin drip infusing per pressure bag in art line. Dopamine is increased to 10 mg/min. Pacing per fast-patch pads with EKG monitoring at 70 beats per minute.
[2016-12-08] MEDS ORDERED: HEPARIN IV ONE (09:05)
[2016-12-08] MEDS ORDERED: SODIUM CHLORIDE IV ONE (09:05)
[2016-12-08 09:06] LABS: ALBUMIN 3.5 g/dL (3.4-5.0); ALKALINE PHOSPHATASE 116 U/L (38-126); ANION GAP 14.1 MEQ/L (3-15); BUN/CREATININE RATIO 29 (10-20); CALCULATED IONIZED CALCIUM 4.5 mg/dL (3.8-4.6); CREATINE KINASE 26 U/L (30-135); TOTAL PROTEIN 6.6 g/dL (6.4-8.5)
--- NOTE | 2016-12-08 09:15 | NUR ---
Dopamine inicreased to maximum dose of 20 mg/min.
--- NOTE | 2016-12-08 09:25 | NUR ---
Arterial pressure is 93/48. Fentanyl 100 mg given IV left AC. NS liter # 1 has infused. #2 bag added.
--- NOTE | 2016-12-08 09:32 | NUR ---
and grandchildren at bedside. Patient responds to verbal stimuli. Versed 1 mg given IV LAC.
--- NOTE | 2016-12-08 09:45 | NUR ---
Arterial pressure is 95/49. Pacing continues at 70 bpm. Sexton cath #16 fr. placed with 100 ml clear yellow urine returning in dependent drainage bag.
--- NOTE | 2016-12-08 10:04 | NUR ---
[facility] flight crew arrives.
[2016-12-08] MEDS ORDERED: LISI30TA5 PO (11:22)
[2016-12-08] MEDS ORDERED: EMPA10TA PO (11:22)
[2016-12-08 17:17] VITALS: BP 92/46
--- NOTE | 2016-12-11 11:02 | PAIN MANAGEMENT ---
Date of note: 12/08/2016 Procedure: Arterial line placement This is a 56-year-old female patient under the care of Dr. Timur James in the ER. Anesthesia was consulted by the staff for the purpose of an arterial line placement secondary to the need for [id number] variability and blood pressures on a patient they wished to pace, that presents to the ER. Upon arrival the heart rate was in the 40s. BP was in the 50s to 60s systolically. She was on dopamine. Anesthesia placed a 5-Irish arterial line in the patient's left radial artery. Sterile prep and drape were utilized. It was dressed and connected to the transducer with positive wave form noted. At that point in time, the patient's blood pressure improved with dopamine to 90s/40s. Anesthesia was released. The patient tolerated the procedure well. She is to be transported by helicopter upon arrival.
[2016-12-18] MEDS ORDERED: CEPH-507 PO (15:34)
== END 2016-12-08 10:28 | disposition short-term general hospital (02) ==
LOC: ED 08:20
DX: R57.0 Cardiogenic shock (principal); I44.30 Unspecified atrioventricular block; R00.1 Bradycardia, unspecified; I49.8 Other specified cardiac arrhythmias
CPT/HCPCS: 36415; 36569; 80053; 82550; 82553; 84443; 84484; 85025; 85379; 85610; 93005; 96374; 99285; J0461; J1265; J1644; J2250; J3010; J7030; 93010

== ENCOUNTER → 2016-12-18 | Outpatient (CLI) | payer OTHER ==
[2016-12-18 16:21] VITALS: BP 173/85
== END ==
LOC: MHUC 15:13
PROVIDERS: ATTEND Physician Assistant
DX: L08.89 Other specified local infections of the skin and subcutaneous tissue (principal)
CPT/HCPCS: 99213

== ENCOUNTER → 2016-12-25 | Outpatient (CLI) | payer OTHER ==
[~2016-12-25] MED LIST changes: +AMLO10TA4 PO; +EMPA10TA PO; +EMPA25TA PO; +HYDR-3921 PO; +LISI30TA5 PO; +PANT40TA3 PO
== END ==
LOC: RAD 13:45
PROVIDERS: ATTEND Physician Assistant Medical
DX: I10 Essential (primary) hypertension (principal)
CPT/HCPCS: 36415; 81050; 84585

== ENCOUNTER 2016-12-27 16:30 | Emergency (ER) | payer OTHER ==
[~2016-12-27] VITALS: Ht 149.9 cm; Wt 77.2 kg
[~2016-12-27 16:30] MED LIST changes: -AMLO10TA4 PO; -EMPA25TA PO; -HYDR-3921 PO; -PANT40TA3 PO
--- OUTSIDE RECORDS SUMMARY | 2016-12-27 16:35 | XMS REPORT | Continuity of Care Document ---
Author Author [facility] Address Unknown Phone Unavailable Care Team Providers Care Business Analytics Director Name Role Phone Jimi Pitt PCP [phone] Insurance Providers Payer Name Policy Number Subscriber Name Relationship [employer] [id number] Lyn Anne 16 Self / Same As Patient Advance Directives Directive Response Recorded Date/Time Advanced Directives No 12/08/16 8:30am Chief Complaint and Reason for Visit Chief Complaint Cardiac Complaint Reason for Visit Bradycardia Problems Active Problems Medical Problem Onset Date Status Abscessed tooth Unknown Acute Acute respiratory distress 12/19/2014 Acute Bradycardia Unknown Acute Chest pain Unknown Acute DKA (diabetic ketoacidoses) Unknown Acute Diabetes mellitus type 2, uncontrolled Unknown Acute Diabetes mellitus, type 2 12/19/2014 Acute Hyperglycemia 12/19/2014 Acute Hypertension Unknown Acute Hypokalemia 12/19/2014 Acute Hyponatremia 12/19/2014 Acute Hypoxia ~12/19/2014 Acute Influenza B ~12/18/2014 Acute Thyroid nodule Unknown Acute Medications Current Home Medications Medication Dose Units Route Directions Days/Qty Instructions Start Date Multivitamin 1 Each 1 Tab ORAL Daily 10/11/16 Insulin Human Isoph/Insulin Regular (Insulin Humulin 70/30) 100 Unit/1 Ml 15 Unit SUBCUTANEOUS Twice Daily Before Meals 1 10/18/16 Amitriptyline Hcl 10 Mg 10 Mg ORAL Bedtime 11/27/16 Aspirin 81 Mg 81 Mg ORAL Daily 11/27/16 Citalopram Hydrobromide 40 Mg 40 Mg ORAL Daily 11/27/16 Gabapentin (Neurontin) 300 Mg 300 Mg ORAL Daily 11/27/16 Triamterene/Hydrochlorothiazid (Maxzide 37.5 Mg-25 Mg) 1 Each 1 Cap ORAL Daily 11/27/16 Metformin Hcl (Glucophage) 500 Mg 500 Mg ORAL Daily 11/27/16 Metoprolol Tartrate (Lopressor) 50 Mg 50 Mg ORAL Twice A Day Trazodone Hcl 100 Mg 75 Mg ORAL Bedtime 11/27/16 Empagliflozin 10 Mg 10 Mg ORAL Daily 12/08/16 Lisinopril 30 Mg 30 Mg ORAL Twice A Day 12/08/16 Past Home Medications Medication Directions Ordered Status Metformin Hcl (Glucophage) 1,000 Mg Tablet, 1000 Mg Oral Twice A Day Discontinued Ranitidine Hcl 300 Mg Tablet, 300 Mg Oral Daily for Reflux 12/19/14 Discontinued Metoprolol Tartrate 100 Mg Tablet, 100 Mg Oral Twice A Day for Hypertension 12/19/14 Discontinued [Insulin] , for Diabetic 12/19/14 Discontinued [Multivitamin] , 12/19/14 Discontinued Multivitamin 1 Each Tablet, 1 Each Oral Daily 12/19/14 Discontinued Insulin Human Isoph/Insulin Regular 100 Unit/1 Ml Vial, 30 Unit Subcutaneous Twice A Day With Meals 12/21/14 Discontinued Citalopram Hydrobromide (Celexa) 40 Mg Tablet, 40 Mg Oral Daily 12/21/14 Discontinued Amitriptyline Hcl 100 Mg Tablet, 100 Mg Oral Bedtime 12/21/14 Discontinued Hydrochlorothiazide 50 Mg Tablet, 50 Mg Oral Daily 12/21/14 Discontinued Acetaminophen (Tylenol) 325 Mg Tab, 650 Mg Oral Every 6 Hours as needed for Pain 12/22/14 Discontinued Ibuprofen (Motrin) 200 Mg Tablet, 600 Mg Oral Every 6 Hours as needed for Pain 12/22/14 Discontinued Oseltamivir Phosphate 75 Mg Cap, 75 Mg Oral Twice A Day 12/22/14 Discontinued Cephalexin 500 Mg Capsule, 500 Mg Oral Three Times A Day 11/14/15 Discontinued Hydrocodone Bit/Acetaminophen 1 Each Tablet, 1 Each Oral Four Times Daily as needed for Severe Pain 11/14/15 Discontinued Lisinopril (Zestril) 20 Mg Tablet, 20 Mg Oral Daily 10/18/16 Discontinued Ibuprofen (Motrin) 200 Mg Tablet, 600 Mg Oral Three Times A Day as needed for Pain 10/18/16 Discontinued Hydrocodone Bit/Acetaminophen 1 Each Tablet, 1 Each Oral Every 6 Hours as needed for Pain 10/18/16 Discontinued Canagliflozin 100 Mg Tablet, 100 Mg Oral Daily 11/27/16 Discontinued Social History Social History Problem Response Recorded Date/Time Onset Date Status Exposure to occupational hazards Yes 11/27/2016 5:01pm Query Response Start Date Stop Date Smoking Status Never smoker Hospital Discharge Instructions No hospital discharge instructions. Plan of Care Discharge Date 12/08/16 10:28am Disposition 02 [facility] - ACUTE Condition at Discharge Transfer Prescriptions See Medication Section Referrals Jimi Pitt - Additional Instructions/Education Some of your test results may not be complete prior to your leaving the Emergency Department. The Emergency Department is not authorized to give test results over the phone. Please contact the doctor's office listed in this packet of information for your final results. Follow up with your primary care physician or return to the Emergency Department for worsening or worrisome symptoms. * Emergency Department phone number: [phone], x [phone] MEDICAL RECORD If you need copies of your X-rays, call [phone]. If you need copies of your medical record, including lab results, a signed authorization for release of records will be required. A telephone call for release of Health Information is not allowed. BILLING Billing can sometimes be confusing and frustrating. To help avoid confusion in the future, please take a moment to acquaint yourself with the billing parties for services. SERVICE BILLING [employer] Emergency Room Services [facility] Physician Services [facility] X-rays [facility] Patients will receive bills for services from the appropriate provider. If you have any questions about your [facility] bill, our staff will be happy to assist you. Please call [phone], and ask for the billing department. THANK YOU for choosing [facility] as your emergency care provider! Care Plan and Goals ~~Discharge Care Plan~~ Problem: Chest, epigastric or chest wall pain Goal: Decreased pain Instructions: Take medication(s) as directed. Follow home discharge instructions. Follow up with primary care physician or automotive painter as directed. Functional Status No functional status results. Allergies, Adverse Reactions, Alerts Allergen Type Severity Reaction Status Last Updated Penicillin Adverse Reaction Intermediate Active 10/10/16 Morphine Allergy Intermediate Active 10/10/16 Erythromycin base Adverse Reaction Intermediate Active 10/10/16 influenza virus vaccine, specific Adverse Reaction Intermediate Active 10/10/16 tuberculin, purified protein deriva Allergy Mild Rash Active 10/10/16 TEGADERM Adverse Reaction Intermediate Active 12/19/14 Immunizations No immunization records. Vital Signs Acute Vital Signs Vital Response Date/Time Temperature (Fahrenheit) 97.3 12/08/2016 5:17pm Pulse 68 bpm 12/08/2016 5:17pm Respirations 10 12/08/2016 5:17pm Height 4 ft 11 in Weight 138 lb Body Mass Index 28.0 kg/m^2 Results Pending Laboratory Results Test Name Collection Date/Time Procedures Procedure Status Date Provider(s) Completed 11/14/16 ROUTINE VENIPUNCTURE Completed 11/27/16 ROUTINE VENIPUNCTURE Completed 11/27/16 CHEST X-RAY 1 VIEW FRONTAL Completed 11/27/16 COMPREHEN METABOLIC PANEL Completed 11/27/16 COMPREHEN METABOLIC PANEL Completed 11/27/16 DRUG TEST PRSMV CHEM ANLYZR Completed 11/27/16 ASSAY OF CK (CPK) Completed 11/27/16 CREATINE MB FRACTION Completed 11/27/16 ASSAY OF NATRIURETIC PEPTIDE Completed 11/27/16 ASSAY OF TROPONIN QUANT Completed 11/27/16 ASSAY OF TROPONIN QUANT Completed 11/27/16 COMPLETE CBC W/AUTO DIFF WBC Completed 11/27/16 COMPLETE CBC W/AUTO DIFF WBC Completed 11/27/16 FIBRIN DEGRADATION QUANT Completed 11/27/16 PROTHROMBIN TIME Completed 11/27/16 THROMBOPLASTIN TIME PARTIAL Completed 11/27/16 ELECTROCARDIOGRAM TRACING Completed 11/27/16 ELECTROCARDIOGRAM TRACING Completed 11/27/16 THER/PROPH/DIAG INJ IV PUSH Completed 11/27/16 EMERGENCY DEPT VISIT Completed 11/27/16 Completed 11/27/16 Completed 11/27/16 Completed 11/27/16 Encounters Encounter Location Arrival/Admit Date Discharge/Depart Date Attending Provider Departed Emergency Room [facility] 12/08/16 8:20am 12/08/16 10:28am JACOBO BRANDON DO Discharged Inpatient (obs) [facility] 11/27/16 4:45pm 11/28/16 10: 28am Holden Chaves MD Registered Clinic [facility] 11/14/16 7:01am Jimi Pitt Recent Diagnosis
[2016-12-27] MEDS ORDERED: ONDANSETRON 2 MG/ML (Z0FRAN) 2 ML VIAL IV ONE (16:40)
[2016-12-27] MEDS ORDERED: SODIUM CHLORIDE 250 ML IV PRN (16:40)
[2016-12-27] MEDS ORDERED: NITROGLYCERIN SUBLINGUAL 0.4 MG (NITROQUICK) TABLET SL PRN (16:40)
[2016-12-27] MEDS ORDERED: HYDR-3921 PO (16:43)
[2016-12-27] MEDS ORDERED: EMPA25TA PO (16:43)
[2016-12-27] MEDS ORDERED: PANT40TA3 PO (16:43)
[2016-12-27] MEDS ORDERED: AMLO10TA4 PO (16:43)
[2016-12-27 16:44] LABS: BASOPHILS % (AUTO) 0 % (0-2); EOSINOPHILS # (AUTO) 0.8 10^3uL; EOSINOPHILS % (AUTO) 7 % (0-4); LYMPHOCYTES # (AUTO) 3.2 X10^3; MEAN CORPUSCULAR HEMOGLOBIN 29.5 PG (26.0-34.0); MEAN CORPUSCULAR HGB CONC 33.7 g/dL (31.0-37.0); MEAN CORPUSCULAR VOLUME 88 FL (80-100); MEAN PLATELET VOLUME 9.3 FL (6.0-9.5); MONOCYTES # (AUTO) 0.8 X10^3; MONOCYTES % (AUTO) 7 % (3-11); NEUTROPHILS # (AUTO) 7.4 X10^3; NEUTROPHILS % (AUTO) 60 % (51-67); PLATELET COUNT 389 10^3uL (150-450); WHITE BLOOD COUNT 12.25 10^3uL (4.0-11.0)
[2016-12-27] MEDS: SODIUM CHLORIDE FLUSH 10 ML SYR IV PRN ×3 (16:45→17:51)
--- NOTE | 2016-12-27 17:00 | NUR ---
nitro 1646 nitro given chest pain 01/31 1650 BP 94/58 Fluids started wide open 1656 BP 120/58 1657 nitro given chest pain 01/01 1702 pain 6/10
[2016-12-27 17:09] LABS: ALBUMIN 4.1 g/dL (3.4-5.0); ALKALINE PHOSPHATASE 154 U/L (38-126); ANION GAP 17.8 MEQ/L (3-15); BUN/CREATININE RATIO 31 (10-20); CALCULATED IONIZED CALCIUM 4.4 mg/dL (3.8-4.6); CREATINE KINASE 21 U/L (30-135); TOTAL PROTEIN 7.7 g/dL (6.4-8.5)
[2016-12-27] MEDS ORDERED: fentaNYL 100 MCG/2 ML VIAL IV ONE ×2 (17:15→17:45)
--- NOTE | 2016-12-27 17:19 | Diagnostic Imaging Report ---
INDICATION: Chest pain and shortness of breath. Portable chest at 4:47 p.m. FINDINGS: Heart size and pulmonary vascularity are normal. Lungs are clear. There are no effusions or pneumothoraces. IMPRESSION: Negative chest. Dictated by: Dictated on workstation # [id number]
--- NOTE | 2016-12-27 17:35 | NUR ---
DR ORTIZ TALKS W/CARDIOLOGY RE PT. CL
[2016-12-27 18:34] VITALS: BP 120/55
== END 2016-12-27 18:40 | disposition short-term general hospital (02) ==
LOC: EDUNIT# 16:30 → ED 16:31
DX: R07.89 Other chest pain (principal); E11.9 Type 2 diabetes mellitus without complications; I10 Essential (primary) hypertension
CPT/HCPCS: 36415; 71010; 80053; 82550; 82553; 83880; 84484; 85025; 85610; 85730; 93005; 96374; 96375; 99285; J2405; J3010; J7050; 93010

== ENCOUNTER → 2016-12-27 | Outpatient (CLI) | payer OTHER | LOC: EMS 16:25 | PROVIDERS: ATTEND Internal Medicine Cardiovascular Disease | DX: R07.89 Other chest pain (principal); I10 Essential (primary) hypertension ==